=== PATIENT | male | born 1975 | race Caucasian/White ===

== ENCOUNTER 2018-01-04 14:33 | Emergency (ER) | payer MEDICAID ==
[~2018-01-04] VITALS: Ht 175.3 cm; Wt 69.9 kg
[2018-01-04 14:45] VITALS: Ht 175.3 cm; Wt 69.9 kg
[2018-01-04 19:04] VITALS: BP 151/96
== END 2018-01-04 19:04 | disposition home or self-care (01) ==
LOC: ED 14:33
DX: G89.29 Other chronic pain (principal); M54.5 Low back pain; F19.10 Other psychoactive substance abuse, uncomplicated; Z88.8 Allergy status to other drugs, medicaments and biological substances
CPT/HCPCS: J1885; J7512